=== PATIENT | female | born 1955 | race Caucasian/White ===

== ENCOUNTER → 2019-05-20 | Outpatient (CLI) | payer OTHER ==
[~2019-05-20] MED LIST: ASPIRIN81 M2 PO; CO Q-10200 MG PO; COUMADIN 5 MG TA5 M1 PO; CRESTOR5 MG; CRESTOR5 MG PO; FERREX-150 PLU150 MG PO; FISH OIL 1,0001 EAC5 PO; GLUCOPHAGE1000 MG PO; GLYCOLAX POWDER17 G1 PO; HYDROCHLOROTH12.5 MG PO; HYDROCODON-ACE1 EAC7 PO; LEVEMIR SUBQ; LISINOPRIL10 MG PO; LISINOPRIL20 MG PO; METOPROLOL SUCC25 M1 PO; NOVOLOG100 UNIT/1 SUBQ; PERCOCET 5-3251 EACH PO; PHISOHEX148 ML TP; PRILOSEC 20 MG20 MG PO; SENOKOT-S1 TA1 PO; UNICOMPLEX M TA1 TA1 PO; VICTOZA0.6 MG/0.1 SUBQ
== END | disposition home or self-care (01) ==
LOC: SJCVCIMAG 10:51
DX: I44.7 Left bundle-branch block, unspecified (principal); R94.31 Abnormal electrocardiogram [ECG] [EKG]; R53.83 Other fatigue; K21.9 Gastro-esophageal reflux disease without esophagitis; E11.9 Type 2 diabetes mellitus without complications; E78.5 Hyperlipidemia, unspecified; I10 Essential (primary) hypertension; E78.00 Pure hypercholesterolemia, unspecified; F17.210 Nicotine dependence, cigarettes, uncomplicated; Z95.2 Presence of prosthetic heart valve; Z79.82 Long term (current) use of aspirin; Z79.4 Long term (current) use of insulin; Z79.899 Other long term (current) drug therapy

== ENCOUNTER → 2020-01-05 | Outpatient (CLI) | payer OTHER | LOC: SJCVC 13:32 | PROVIDERS: ATTEND Internal Medicine Cardiovascular Disease | DX: R94.31 Abnormal electrocardiogram [ECG] [EKG] (principal); I44.0 Atrioventricular block, first degree; I44.7 Left bundle-branch block, unspecified; E78.00 Pure hypercholesterolemia, unspecified; R06.00 Dyspnea, unspecified; I10 Essential (primary) hypertension; Z95.2 Presence of prosthetic heart valve ==

== ENCOUNTER → 2020-07-04 | Outpatient (CLI) | payer OTHER | LOC: SJCVCIMAG 08:09 | PROVIDERS: ATTEND Internal Medicine Cardiovascular Disease | DX: R94.31 Abnormal electrocardiogram [ECG] [EKG] (principal); I08.3 Combined rheumatic disorders of mitral, aortic and tricuspid valves; I44.0 Atrioventricular block, first degree; I10 Essential (primary) hypertension; E78.00 Pure hypercholesterolemia, unspecified; E11.9 Type 2 diabetes mellitus without complications; E78.5 Hyperlipidemia, unspecified; E78.1 Pure hyperglyceridemia; E66.09 Other obesity due to excess calories; G47.33 Obstructive sleep apnea (adult) (pediatric); M10.9 Gout, unspecified; I49.9 Cardiac arrhythmia, unspecified; I45.4 Nonspecific intraventricular block; Z87.891 Personal history of nicotine dependence; Z72.89 Other problems related to lifestyle; Z68.35 Body mass index [BMI] 35.0-35.9, adult; Z79.4 Long term (current) use of insulin; Z95.2 Presence of prosthetic heart valve; Z79.899 Other long term (current) drug therapy; Z79.82 Long term (current) use of aspirin; Z88.8 Allergy status to other drugs, medicaments and biological substances ==

== ENCOUNTER → 2021-01-01 | Outpatient (CLI) | payer OTHER | LOC: SJCVCIMAG 07:36 | PROVIDERS: ATTEND Internal Medicine Cardiovascular Disease | DX: R94.31 Abnormal electrocardiogram [ECG] [EKG] (principal); I08.0 Rheumatic disorders of both mitral and aortic valves; I10 Essential (primary) hypertension; E78.5 Hyperlipidemia, unspecified; E78.1 Pure hyperglyceridemia; M10.9 Gout, unspecified; E11.9 Type 2 diabetes mellitus without complications; G47.33 Obstructive sleep apnea (adult) (pediatric); M79.606 Pain in leg, unspecified; G89.29 Other chronic pain; H54.3 Unqualified visual loss, both eyes; R00.1 Bradycardia, unspecified; I44.0 Atrioventricular block, first degree; D65 Disseminated intravascular coagulation [defibrination syndrome]; Z87.891 Personal history of nicotine dependence; Z79.82 Long term (current) use of aspirin; Z79.4 Long term (current) use of insulin; Z79.899 Other long term (current) drug therapy; Z95.2 Presence of prosthetic heart valve; Z88.8 Allergy status to other drugs, medicaments and biological substances ==